=== PATIENT | female | born 1990 | race Caucasian/White ===

== ENCOUNTER 2018-09-06 09:29 | Emergency (ER) | payer MEDICAID, OTHER ==
[2018-09-06 09:40] VITALS: BP 113/72
--- NOTE | 2018-09-06 09:57 | UC ---
Throat Pain/Nasal Kp HPI - HPI Summary HPI Summary: 28 yo female presents with sinus pain/pressure/congestion, post nasal drip, and sore throat for the last 4-5 days. This morning she woke up and both of her eyes were red and had yellow crusts right > left. She does not wear contacts and denies injury or FB. She has been taking OTC cold medicine for her symptoms with little relief. Denies fever or chills. - History of Current Complaint Chief Complaint: UCEye Stated Complaint: EYE ISSUE RESP ISSUE Time Seen by Provider: 09/06/18 09:57 Hx Obtained From: Patient Hx Last Menstrual Period: 08/15/18 Onset/Duration: Gradual Onset Severity: Mild Pain Intensity: 2 Pain Scale Used: 0-10 Numeric - Allergies/Home Medications Allergies/Adverse Reactions: Allergies Allergy/AdvReac Type Severity Reaction Status Date / Time No Known Allergies Allergy Verified 09/06/18 09:40 Home Medications: Home Medications Levothyroxine TAB* [Synthroid 137 MCG TAB*] 1 tab PO DAILY 09/06/18 [History Confirmed 09/06/18] PMH/Surg Hx/FS Hx/Imm Hx Endocrine History: Hypothyroidism - Surgical History Surgical History: None - Family History Known Family History: Positive: Other - Hypothyroid - Social History Occupation: Employed Full-time Lives: With Family Alcohol Use: Occasionally Substance Use Type: None Smoking Status (MU): Never Smoked Tobacco Review of Systems All Other Systems Reviewed And Are Negative: Yes Constitutional: Positive: Negative Skin: Positive: Negative Eyes: Positive: Drainage, Eye Redness ENT: Positive: Sore Throat, Nasal Discharge, Sinus Congestion, Sinus Pain/ Tenderness Respiratory: Positive: Negative Cardiovascular: Positive: Negative Gastrointestinal: Positive: Negative Neurovascular: Positive: Negative Neurological: Positive: Negative Psychological: Positive: Negative Physical Exam - Summary Physical Exam Summary: GENERAL: NAD. WDWN. No pain distress. SKIN: No rashes, sores, lesions, or open wounds. HEENT: Head: AT/NC Eyes: EOM intact. PERRLA. B/L EYES: Mild scleral injection. Conjunctiva with mild erythema and inflammation. Mild yellow crusting RIGHT > LEFT eye. Ears: Hearing grossly normal. LEFT TM with mild erythema and injection. No canal edema or drainage. Nose: Nasal mucosa mildly swollen and erythematous with yellow/ clear discharge. TTP maxillary and frontal sinus. Positive post nasal drip Throat: Posterior oropharynx without exudates, erythema, or tonsillar enlargement. Uvula midline. NECK: Supple. Nontender. No lymphadenopathy. CHEST: CTAB. No r/r/w. No accessory muscle use. Breathing comfortably and in no distress. CV: RRR. Without m/r/g. Pulses intact. NEURO: Alert. PSYCH: Age appropriate behavior. Triage Information Reviewed: Yes Vital Signs: Initial Vital Signs Temp 98 F 09/06/18 09:38 Pulse 85 09/06/18 09:38 Resp 16 09/06/18 09:38 BP 113/72 09/06/18 09:38 Pulse Ox 99 09/06/18 09:38 Vital Signs Reviewed: Yes Throat Pain/Nasal Course/Dx - Course Course Of Treatment: Sinusitis. ?bacterial vs viral/allergic conjunctivitis. - Differential Dx/Diagnosis Provider Diagnosis: Sinusitis, Conjunctivitis Discharge - Sign-Out/Discharge Documenting (check all that apply): Patient Departure All imaging exams completed and their final reports reviewed: No Studies - Discharge Plan Condition: Stable Disposition: HOME Prescriptions: Amoxicillin PO (*) [Amoxicillin 875 MG (*)] 875 mg PO BID #14 tab Polymyx/Trimethoprim OPTH* [Polytrim OPHTH*] 1 drop BOTH EYES TID #1 btl Patient Education Materials: Rhinosinusitis (DC), Conjunctivitis (ED) Referrals: Margi Gamez MD [Primary Care Provider] - Additional Instructions: If you develop a fever, shortness of breath, chest pain, new or worsening symptoms - please call your PCP or go to the ED immediately. - Billing Disposition and Condition Condition: STABLE Disposition: Home
== END 2018-09-06 10:25 | disposition home or self-care (01) ==
LOC: UCEAST 09:29
DX: J32.9 Chronic sinusitis, unspecified (principal); H10.9 Unspecified conjunctivitis
CPT/HCPCS: 99212; G0463